=== PATIENT | female | born 2000 | race American Indian/Alaskan Native ===

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

== ENCOUNTER 2021-07-27 14:55 | Emergency (ER) | payer MEDICAID ==
[2021-07-27] MEDS ORDERED: IBUPROFEN 800 MG TAB PO ONE (16:15)
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
[2021-07-27 17:22] LABS: HCG Qualitative,Urine Negative (Negative)
[2021-07-27 18:11] VITALS: BP 123/61
--- NOTE | 2021-07-27 18:18 | XRay Report ---
Right femur-4 views INDICATION: rt femur pain. COMPARISON: None. IMPRESSION: Old healed midshaft femoral fracture with statically locked intramedullary nail. No hard gutiérrez complication. Soft tissues are normal. Normal alignment. No significant DJD. Signer Name: Piotr Ashby MD Signed: 07/27/2021 6:14 PM Workstation Name: [id number]
== END 2021-07-27 19:05 | disposition home or self-care (01) ==
LOC: ED 14:55
DX: J02.9 Acute pharyngitis, unspecified (principal); M79.651 Pain in right thigh; E11.9 Type 2 diabetes mellitus without complications; I10 Essential (primary) hypertension; Z91.018 Allergy to other foods; G40.909 Epilepsy, unspecified, not intractable, without status epilepticus
CPT/HCPCS: 81025; 87116; 87430; 99284

== ENCOUNTER 2021-12-02 12:03 | Emergency (ER) | payer MEDICAID ==
[2021-12-02 13:02] LABS: Basophils % (Auto) 0.4 % (0.0-1.8); Eosinophils # (Auto) 0.1 K/mm3 (0.0-0.4); Hematocrit 36.9 % (30.3-42.9); Hemoglobin 12.3 gm/dl (10.1-14.3); Lymphocytes # (Auto) 2.1 K/mm3 (1.2-5.4); Lymphocytes % (Auto) 24.3 % (13.4-35.0); Mean Corpuscular HGB Conc 33 % (30-34); Mean Corpuscular Volume 84 fl (79-97); Monocytes # (Auto) 0.7 K/mm3 (0.0-0.8); Monocytes % (Auto) 7.6 % (0.0-7.3); Platelet Count 326 K/mm3 (140-440); Red Blood Count 4.38 M/mm3 (3.65-5.03); Red Cell Distribution Width 13.2 % (13.2-15.2)
[2021-12-02 13:13] LABS: BUN/Creatinine Ratio 12; Blood Urea Nitrogen 6 mg/dL (7-17); Calcium 9.8 mg/dL (8.4-10.2); Hemolysis Index 4
--- NOTE | 2021-12-02 13:28 | Emergency Department Report ---
ED Female HPI - General Chief complaint: Vaginal Bleeding Stated complaint: ABD PAIN/12WKS PREG Time Seen by Provider: 12/02/21 12:30 Source: EMS Mode of arrival: Wheelchair Limitations: No Limitations - History of Present Illness Initial comments: Patient is a 21-year-old that presents to the emergency room with vaginal bleeding during . She states that she is 12 weeks and started having light vaginal bleeding this morning. Associated with some mild cramping. Patient denies nausea vomiting. No dysuria. No fever or chills. No vaginal discharge. Last menstrual period 07-28 1 Complaint: vaginal bleeding -: Gradual, days(s) Consistency: intermittent Improves with: none Worsens with: none Are you Now?: Yes Associated Symptoms: denies other symptoms, vaginal bleeding. denies: vaginal discharge, abdominal pain, nausea/vomiting, fever/chills, headaches, loss of appetite, dysuria, hematuria, rash, seizure, shortness of breath, syncope, weakness - Related Data Sexually active: Yes Previous Rx's Medication Instructions Recorded Last Taken Type Silver Sulfadiazine [Ssd] 400 gm TP BID #1 each 03/28/19 Unknown Rx cephALEXin [Keflex] 500 mg PO Q12HR #20 cap 03/28/19 Unknown Rx Allergies Allergy/AdvReac Type Severity Reaction Status Date / Time peach Allergy Unknown Verified 12/02/21 12:13 risperidone [From Risperdal] Allergy Anaphylaxis Verified 12/02/21 12:13 bee venom protein (honey bee) AdvReac Unknown Verified 12/02/21 12:13 ED Review of Systems ROS: Stated complaint: ABD PAIN/12WKS PREG Other details as noted in HPI Comment: All other systems reviewed and negative ED Past Medical Hx - Past Medical History Previous Medical History?: Yes Hx Diabetes: Yes (no meds) Hx Seizures: Yes (No meds) Hx Psychiatric Treatment: Yes (depression, bipolar) Additional medical history: PTSD, Depression. Trichotillomania - Surgical History Past Surgical History?: Yes Additional Surgical History: claudine to right leg. left arm- bar placed - Family History Family history: no significant - Social History Smoking Status: Never Smoker Substance Use Type: None - Medications Home Medications: Home Medications Medication Instructions Recorded Confirmed Last Taken Type Silver Sulfadiazine [Ssd] 400 gm TP BID #1 each 03/28/19 08/18/19 Unknown Rx cephALEXin [Keflex] 500 mg PO Q12HR #20 cap 03/28/19 08/18/19 Unknown Rx ED Physical Exam - General Limitations: No Limitations General appearance: alert, in no apparent distress - Head Head exam: Present: atraumatic, normocephalic - Eye Eye exam: Present: normal appearance - ENT ENT exam: Present: mucous membranes moist - Neck Neck exam: Present: normal inspection - Respiratory Respiratory exam: Present: normal lung sounds bilaterally. Absent: respiratory distress - Cardiovascular Cardiovascular Exam: Present: regular rate, normal rhythm. Absent: systolic murmur, diastolic murmur, rubs, gallop - GI/Abdominal GI/Abdominal exam: Present: soft, normal bowel sounds - Extremities Exam Extremities exam: Present: normal inspection - Back Exam Back exam: Present: normal inspection - Neurological Exam Neurological exam: Present: alert, oriented X3 - Psychiatric Psychiatric exam: Present: normal affect, normal mood - Skin Skin exam: Present: warm, dry, intact, normal color. Absent: rash ED Course Vital Signs 12/02/21 14:04 Temperature 98.2 F Pulse Rate 84 Respiratory 16 Rate Blood Pressure 132/76 [Right] O2 Sat by Pulse 100 Oximetry ED Medical Decision Making - Lab Data Result diagrams: 12/02/21 12:35 12/02/21 12:35 - Radiology Data Radiology results: report reviewed, image reviewed - Medical Decision Making Labs 12/02/21 12/02/21 12/02/21 12:35 12:35 12:35 WBC 8.7 RBC 4.38 Hgb 12.3 Hct 36.9 MCV 84 MCH 28 MCHC 33 RDW 13.2 Plt Count 326 Lymph % (Auto) 24.3 [place] % (Auto) 7.6 H Eos % (Auto) 1.0 Baso % (Auto) 0.4 Lymph # (Auto) 2.1 Roosevelt # (Auto) 0.7 Eos # (Auto) 0.1 Baso # (Auto) 0.0 Seg Neutrophils % 66.7 Seg Neutrophils # 5.8 Sodium 136 L Potassium 4.0 Chloride 99.5 Carbon Dioxide 23 Anion Gap 18 BUN 6 L Creatinine 0.5 L Estimated GFR > 60 BUN/Creatinine Ratio 12 Glucose 84 Calcium 9.8 Blood Type B POSITIVE Ord Rhogam Gestat Weeks Rh pos US NOTED LABS NOTED RH POS HCG NOTED UA SENT LATE- CALL PT IF POS DC HOME WITH DC PLAN OF CARE INCLUDING DIET/MEDS/ACTIVITY AND FOLLOW UP IN 48 HOURS. SHE VERBALZES UNDERSTANDING OF PLAN OF CARE. - Differential Diagnosis RO AB; UTI, STI Critical care attestation.: If time is entered above; I have spent that time in minutes in the direct care of this critically ill patient, excluding procedure time. ED Disposition Clinical Impression: Vaginal bleeding during Disposition: HOME / SELF CARE / HOMELESS Is pt being admited?: No Does the pt Need Aspirin: No Condition: Stable Instructions: Threatened Miscarriage Additional Instructions: PELVIC REST TYLENOL FOR PAIN FOLLOW UP WITH OBGYN IN 48 HOURS FOR REPEAT BLOOD WORK AND EVALUATION REFERRAL BELOW Referrals: NELY ROBERTS MD [Staff Physician] - 3-5 Days Time of Disposition: 13:28
--- NOTE | 2021-12-02 13:28 | Ultrasound Report ---
FIRSTTRIMESTER OBSTETRIC ULTRASOUND HISTORY: Vaginal bleeding during COMPARISON: None. TECHNIQUE: Routine transabdominal and transvaginal OB ultrasound performed. FINDINGS: Uterus: Mildly enlarged measuring 9.2 x 4.6 x 6.7 cm. Gestational Sac: Well-defined oval shape and intrauterine in location. Yolk Sac: Normal in appearance. Fetus/Embryo: [place]-rump length of 1.91 cm, corresponding to an estimated gestational age of 8 weeks 3 days. Embryonic/ anatomy is too small for evaluation. Embryonic/ cardiac activity: 159bpm Placenta: Too small for evaluation. Amniotic fluid volume: Subjectively appropriate for gestational age. Ovaries: The right ovary is normal in size and appearance with normal blood flow, measuring 2.5 x 1. 7 x 1.5 cm. The left ovary is normal in size and appearance with normal blood flow, measuring 3.3 x 1.9 x 2.0 cm. Hypoechoic space-occupying mass in the left ovary with peripheral vascularity is most likely the corpus luteum. Additional findings: None. IMPRESSION Early live intrauterine . No acute abnormality is detected. Signer Name: Sebastian Gonzalez Jr, MD Signed: 12/02/2021 1:24 PM Workstation Name: [id number]
[2021-12-02 14:05] VITALS: BP 132/76
[2021-12-02 14:22] LABS: Bacteria,Urine 1+ /HPF (Negative); Bilirubin,Urine NEG (Negative); Blood,Urine NEG (Negative); Color,Urine Amber (Yellow); Mucus,Urine 3+ /HPF; Urobilinogen,Urine < 2.0 mg/dL (<2.0)
[2021-12-02 14:37] LABS: Protein,Urine >500 mg/dL (Negative)
== END 2021-12-02 14:08 | disposition home or self-care (01) ==
LOC: ED 12:03
DX: O20.9 Hemorrhage in early pregnancy, unspecified (principal); Z3A.12 12 weeks gestation of pregnancy; E11.9 Type 2 diabetes mellitus without complications; R56.9 Unspecified convulsions; F32.A Depression, unspecified; Z79.899 Other long term (current) drug therapy; Z98.890 Other specified postprocedural states; Z91.030 Bee allergy status; Z91.02 Food additives allergy status; Z91.09 Other allergy status, other than to drugs and biological substances
CPT/HCPCS: 36415; 76801; 76817; 80048; 81001; 84702; 85025; 86900; 86901; 99284

== ENCOUNTER 2022-04-22 10:29 | Outpatient (CLI) | payer MEDICAID ==
[2022-04-22 11:02] VITALS: BP 122/60
[2022-04-22 11:40] LABS: Hyaline Casts,Urine 3 /LPF; Mucus,Urine 2+ /HPF
[2022-04-22 11:45] LABS: Color,Urine Yellow (Yellow)
[2022-04-22] MEDS ORDERED: LACTATED RINGERS 500 ML IV ONE (12:00)
== END 2022-04-22 11:45 | disposition left against medical advice (07) ==
LOC: TRG 10:29 → APU 10:30 → TRG 11:45
PROVIDERS: ATTEND Obstetrics & Gynecology
DX: O26.893 Other specified pregnancy related conditions, third trimester (principal); M54.50 Low back pain, unspecified; Z3A.29 29 weeks gestation of pregnancy
CPT/HCPCS: 81001

== ENCOUNTER 2022-04-29 22:26 | Outpatient (CLI) | payer MEDICAID ==
[2022-04-29 22:55] LABS: Color,Urine Yellow (Yellow)
[2022-04-29 23:02] LABS: Mucus,Urine 1+ /HPF
[2022-04-29] MEDS ORDERED: ACETAMINOPHEN 500 MG TAB PO ONE (23:50)
--- NOTE | 2022-04-30 00:42 | Ultrasound Report ---
US OB follow up INDICATION / CLINICAL INFORMATION: Leakage of fluid COMPARISON: Limited OB ultrasound 12/02/2021 TECHNIQUE: Using a transcutaneous probe, multiple grayscale, color Doppler, and spectral Doppler imag es of the uterus and fetus were captured and stored. FINDINGS: Single cephalic fetus heart rate 135. Amniotic fluid index normal with COREY of 16.9 cm. Posterior placenta demonstrates no significant abnormality. Biparietal Diameter = 7.96 cm = 32, 0 weeks, days Head Circumference = 28.36 cm = 31, 1 weeks, days Abdominal Circumference = 26.73 cm = 30, 6 weeks, days Femur Length = 5.66 cm = 29, 5 weeks, days Average Ultrasound Age (AUA) = 31, 0 weeks, days. EDC 07/02/2022. Clinical S1 gestational age is 31 weeks 0 days. Estimated weight = 1604 g; growth percentile 25%.. IMPRESSION: 1. Single living fetus as detailed. Allowing for appropriate standard deviation for third trimester u ltrasound, appropriate interval growth is suggested. Signer Name: Santi Rosales II, MD Signed: 04/30/2022 12:38 AM Workstation Name: [id number]
[2022-04-30 00:48] VITALS: BP 116/69
== END 2022-04-30 01:25 | disposition home or self-care (01) ==
LOC: TRG 22:26 → APU 22:28 → TRG 04-30 01:25
PROVIDERS: ATTEND Obstetrics & Gynecology Gynecology
DX: O26.893 Other specified pregnancy related conditions, third trimester (principal); R25.2 Cramp and spasm; Z3A.30 30 weeks gestation of pregnancy
CPT/HCPCS: 36415; 59025; 76816; 81001; 84112